=== PATIENT | male | born 2000 | race Caucasian/White ===

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

== ENCOUNTER 2021-03-17 06:00 | Outpatient (RCR) | payer MEDICAID, SELFPAY | END 2021-03-18 23:59 | disposition home or self-care (01) | LOC: MPO 06:00 | PROVIDERS: PCP Family Medicine; Referring Provider Neurological Surgery; Visit Provider Neurological Surgery | DX: Q05.9 Spina bifida, unspecified (principal); I77.0 Arteriovenous fistula, acquired | CPT/HCPCS: 97110; 97162; 97166; 97530 ==

== ENCOUNTER 2021-04-07 06:00 | Outpatient (RCR) | payer MEDICAID, SELFPAY | END 2021-04-18 23:59 | disposition home or self-care (01) | LOC: MPO 06:00 | PROVIDERS: PCP Family Medicine; Referring Provider Neurological Surgery; Visit Provider Neurological Surgery | DX: Q05.9 Spina bifida, unspecified (principal) | CPT/HCPCS: 97110; 97112; 97140; 97530 ==

== ENCOUNTER 2021-04-19 06:00 | Outpatient (RCR) | payer MEDICAID, SELFPAY | END 2021-05-18 23:59 | disposition home or self-care (01) | LOC: MPO 06:00 | PROVIDERS: PCP Family Medicine; Visit Provider Neurological Surgery | DX: Q05.1 Thoracic spina bifida with hydrocephalus (principal) | CPT/HCPCS: 97110; 97112; 97140; 97530 ==

== ENCOUNTER 2021-05-19 11:36 | Outpatient (RCR) | payer MEDICAID, SELFPAY | END 2021-06-18 23:59 | disposition home or self-care (01) | LOC: MPO 11:36 | PROVIDERS: PCP Family Medicine; Visit Provider Neurological Surgery | DX: Q05.2 Lumbar spina bifida with hydrocephalus (principal); I77.0 Arteriovenous fistula, acquired | CPT/HCPCS: 97110; 97112; 97140; 97530 ==

== ENCOUNTER 2021-06-19 06:00 | Outpatient (RCR) | payer MEDICAID, SELFPAY | END 2021-07-19 23:59 | disposition home or self-care (01) | LOC: MPO 06:00 | PROVIDERS: PCP Family Medicine; Visit Provider Neurological Surgery | DX: Q05.2 Lumbar spina bifida with hydrocephalus (principal); I62.9 Nontraumatic intracranial hemorrhage, unspecified; M62.81 Muscle weakness (generalized) | CPT/HCPCS: 97110; 97112; 97140; 97530; 97535 ==

== ENCOUNTER 2021-07-20 06:00 | Outpatient (RCR) | payer MEDICAID, SELFPAY | END 2021-08-16 23:59 | disposition home or self-care (01) | LOC: MPO 06:00 | PROVIDERS: PCP Family Medicine; Visit Provider Neurological Surgery | DX: Q05.2 Lumbar spina bifida with hydrocephalus (principal); I77.0 Arteriovenous fistula, acquired | CPT/HCPCS: 97110; 97140 ==

== ENCOUNTER 2021-08-17 06:00 | Outpatient (RCR) | payer MEDICAID, SELFPAY | END 2021-09-15 23:59 | disposition home or self-care (01) | LOC: MPO 06:00 | PROVIDERS: PCP Family Medicine; Visit Provider Neurological Surgery | DX: Q05.1 Thoracic spina bifida with hydrocephalus | CPT/HCPCS: 97110; 97112; 97140 ==

== ENCOUNTER 2022-08-31 06:00 | Outpatient (RCR) | payer SELFPAY | END 2022-09-16 23:59 | disposition home or self-care (01) | LOC: MOT 06:00 | PROVIDERS: PCP Family Medicine; Visit Provider Physical Medicine & Rehabilitation | DX: Q05.9 Spina bifida, unspecified (principal); M25.512 Pain in left shoulder | CPT/HCPCS: 97110; 97112; 97166 ==

== ENCOUNTER 2022-09-17 06:00 | Outpatient (RCR) | payer SELFPAY | END 2022-10-16 23:59 | disposition home or self-care (01) | LOC: MOT 06:00 | PROVIDERS: PCP Family Medicine; Visit Provider Physical Medicine & Rehabilitation | DX: Q05.6 Thoracic spina bifida without hydrocephalus (principal); M25.512 Pain in left shoulder | CPT/HCPCS: 97110; 97112; 97140 ==

== ENCOUNTER 2022-10-17 06:00 | Outpatient (RCR) | payer SELFPAY | END 2022-11-16 23:59 | disposition home or self-care (01) | LOC: MOT 06:00 | PROVIDERS: PCP Family Medicine; Visit Provider Physical Medicine & Rehabilitation | DX: Q05.6 Thoracic spina bifida without hydrocephalus (principal); M25.512 Pain in left shoulder | CPT/HCPCS: 97110; 97112; 97140 ==

== ENCOUNTER → 2023-12-16 10:25 | Outpatient (BNVA) | payer MEDICAID, SELFPAY | PROVIDERS: PCP Family Medicine; Visit Provider Emergency Medicine | DX: R68.89 Other general symptoms and signs (principal); J02.9 Acute pharyngitis, unspecified; J10.1 Influenza due to other identified influenza virus with other respiratory manifestations; H10.31 Unspecified acute conjunctivitis, right eye | CPT/HCPCS: 87400; 87880 ==